=== PATIENT | male | born 1970 | race Caucasian/White ===

== ENCOUNTER 2017-03-08 01:53 | Emergency (ER) | payer BC ==
[~2017-03-08] VITALS: Ht 182.9 cm; Wt 83.9 kg
[~2017-03-08 01:53] MED LIST: METO100T3 PO
--- NOTE | 2017-03-08 02:10 | NUR ---
PT A/OX4 BREATHING EFFORTLESSLY ON ROOM AIR, PT STATES HE STARTING FEELING ANXIETY S/P SMOKING WEED TONIGHT AND PT STATES HIS BP WAS HIGH TODAY, PT STATES HE TAKES HIS BP MEDICINE EVERY MORNING AND TOOK A HALF OF ONE AN HOUR AGO BECAUSE HIS BP WAS STILL HIGH, PT ON MONITOR MD MADE AWARE WILL CONTINUE TO MONITOR.
[2017-03-08] MEDS ORDERED: LORAZEPAM INJ 2 MG/ML VIAL ONE (02:12)
[2017-03-08] MEDS: LORAZEPAM INJ 2 MG/ML VIAL IM ONE (02:19)
--- NOTE | 2017-03-08 03:30 | NUR ---
PT STATES HE IS FEELING ALOT BETTER AND IS NO LONGER ANXIOUS, PT ON MONITOR, BP HIGH, MD MADE AWARE WILL CONTINUE TO MONITOR.
[2017-03-08] MEDS ORDERED: METOPROLOL TARTRATE 50 MG TABLET ONE (04:06)
[2017-03-08] MEDS: METOPROLOL SUCCINATE 50 MG TAB.SR.24H PO SCH (04:14)
[2017-03-08] MEDS ORDERED: hydrALAZINE HCL IV 20 MG VIAL ONE (05:02)
[2017-03-08] MEDS: hydrALAZINE HCL IV 20 MG VIAL IV ONE (05:10)
--- NOTE | 2017-03-08 05:12 | NUR ---
PT BP STILL HIGH, IV STARTED AND MEDICATION GIVEN PER MD ORDER, WILL CONTINUE TO MONITOR.
--- NOTE | 2017-03-08 06:08 | NUR ---
PT D/C, PT STATES HE IS FEELING FINE AND IS HAVING NO SYMPTOMS, PT STATES HE HAS AN APPOINTMENT WITH HIS PMD TOMMORW MORNING AND HE WILL TALK TO HIS PMD ABOUT BP MEDICATIONS, MD MADE AWARE, IV removed. Catheter intact and site benign. Pressure and 4x4 applied to site. No bleeding noted. PT WALKED OUT WITH A STEADY GAIT
[2017-03-08 06:10] VITALS: BP 170/103
== END 2017-03-08 06:11 | disposition home or self-care (01) ==
LOC: ER 01:56
DX: F41.9 Anxiety disorder, unspecified (principal); I10 Essential (primary) hypertension; F12.90 Cannabis use, unspecified, uncomplicated; F17.200 Nicotine dependence, unspecified, uncomplicated
CPT/HCPCS: A4606; J0360; J2060; Z7610

== ENCOUNTER 2021-04-28 05:37 | Emergency (ER) | payer BC ==
[~2021-04-28] VITALS: Ht 188 cm; Wt 95.3 kg
[~2021-04-28 05:37] MED LIST changes: +METO100T14 PO; -METO100T3 PO
[2021-04-28 05:40] VITALS: BP 187/104
--- NOTE | 2021-04-28 05:40 | NUR ---
PATIENT BIBS C/O SORE THROAT SINCE YESTERDAY ACCOMPANIED BY CHILLS. PATIENT IS AAO X 4, BREATHING EVEN AND UNLABORED, SATURATION 99% ON ROOM AIR. PATIENT SEEN AND EXAMINED BY DR AGOSTO. PATIENT ATTACHED TO MONITOR AND PULSE OX. WILL CONTINUE TO MONITOR AND CARRY OUT MD ORDERS.
[2021-04-28] MEDS ORDERED: PENICILLIN G BENZATHINE 2.4 MMU/4 ML ML IM ONE (06:27)
[2021-04-28] MEDS ORDERED: DEXAMETHASONE SOLN 5 MG/5 ML UDC ONE (06:28)
[2021-04-28] MEDS: DEXAMETHASONE SOLN 5 MG/5 ML UDC PO ONE (06:32)
[2021-04-28] MEDS: PENICILLIN G BENZATHINE 2.4 MMU/4 ML ML IM ONE (06:32)
== END 2021-04-28 06:37 | disposition home or self-care (01) ==
LOC: ER 05:39
DX: J02.9 Acute pharyngitis, unspecified (principal); I10 Essential (primary) hypertension; F41.9 Anxiety disorder, unspecified; F17.200 Nicotine dependence, unspecified, uncomplicated; Z79.899 Other long term (current) drug therapy
CPT/HCPCS: 96372; 99283; J0558; J8540